=== PATIENT | male | born 1965 | race Caucasian/White ===

== ENCOUNTER 2016-11-23 06:41 | Observation (INO) | payer OTHER ==
[~2016-11-23] VITALS: Ht 175.3 cm; Wt 98.9 kg
--- NOTE | ~2016-11-23 | P ---
[facility] [place] [address] PROCEDURE REPORT Name: KARLY FRANCO Room #: 211-P [facility] Johann Ramirez#: [id number] Admission: 11/23/16 Attend Phys: Cesar Camejo MD Discharge: 11/24/16 Date of : 67 Report #: [id number] THIS REPORT FOR: //name// CC: Cesar Tang PREOPERATIVE DIAGNOSIS: Ischemic cardiomyopathy. POSTOPERATIVE DIAGNOSIS: Ischemic cardiomyopathy. HISTORY: The patient is a 51-year-old with history of ischemic cardiomyopathy here for ICD implantation for primary prevention of sudden cardiac . ANESTHESIA: The patient underwent MAC anesthesia with no anesthesia related complications. DESCRIPTION OF PROCEDURE: The patient underwent informed consent. We discussed the details of the procedure including the risks, which include but not limited to bleeding, infection, vascular damage, cardiac perforation and pneumothorax. He understood these risks and is willing to proceed. As such, the patient was brought to the EP laboratory in a fasting and unsedated state and prepped and draped in a sterile fashion. A venogram was performed showing patency of the left axillary vein and the patient received IV Ancef. Next, I injected 20 mL of lidocaine below the level of left clavicle. Incision was made. A pocket was created over the prepectoral fascia and then access was obtained once the left axillary vein using the extrathoracic approach with the sheath positioned using the modified Seldinger technique. Under fluoroscopic guidance, lead was positioned in the right ventricular apex with adequate pacing and sensing thresholds and then sutured to the prepectoral fascia using Ethibond suture. The device was connected and found to be functioning normally. The device was placed in the pocket. The pocket was irrigated with vancomycin and the pocket was closed in 3 layers using 2-0 for the deep layer, 3-0 for the mid layer and 4-0 for the subcuticular with surgical glue placed at the incision site. The patient awoke, neurologically and hemodynamically intact with no complications and no significant bleeding. The implanted device was a [employer] model # [id number], serial #[id number] with the RV lead also [employer] model #7122Q 58 cm single coil serial #[id number] with a R-wave of 9.1 millivolts, pacing impedance of 650 ohms and pacing threshold 0.75 volts at 0.5 milliseconds. The device is programmed to the VVI 40 mode with a VT zone set at 180 beats per minute with 3 rounds of bursts followed by 3 rounds of ramp followed by max output shocks. The VF zone was set at greater than 222 beats per minute with ATP while charging followed by max output shocks. CONCLUSIONS: [facility] [address] [place] [address] PROCEDURE REPORT Name: KARLY FRANCO Room #: 211-P [facility] Johann Ramirez#: [id number] Admission: 11/23/16 Attend Phys: Cesar Camejo MD Discharge: 11/24/16 Date of : 67 Report #: [id number] 1. Successful ICD implantation. 2. Satisfactory ventricular pacing and sensing thresholds. <ELECTRONICALLY SIGNED> By: Cesar Camejo MD 11/24/16 1227 1006 1451 Cesar Camejo MD /nt
[~2016-11-23 06:41] MED LIST: APAP W/CODEINE1 TA2; ASA5UEC PO; CARVEDILOL3.125 MG; CARVEDILOL6.25 MG PO; COUMADIN 10MG T10 M1 PO; COUMADIN 2 MG TA2 M1; CRESTOR40 MG PO; CRESTOR5 MG; LISINOPRIL10 MG PO; LISINOPRIL2.5 MG; OMEPRAZOLE10 MG; PERCOCET 5-3251 EACH
[2016-11-23] MEDS ORDERED: COZAAR 25 MG TA25 M1 PO (06:57)
[2016-11-23] MEDS ORDERED: ATORVASTATIN CA40 MG PO (06:57)
[2016-11-23] MEDS ORDERED: IBUPROFEN 200200 M1 PO (06:57)
[2016-11-23] MEDS ORDERED: OXYCONTIN10 M1 PO (06:58)
[2016-11-23] MEDS ORDERED: CHANTIX1 EACH PO (06:58)
[2016-11-23] MEDS ORDERED: PLAVIX 75 MG TA75 M1 PO (06:59)
[2016-11-23 07:19] LABS: BASOPHILS 0.8 % (0.0-2.0); HEMATOCRIT 43.9 % (42.0-52.0); HEMOGLOBIN 14.9 gm/dL (14.0-18.0); LYMPHOCYTES 25.9 % (24.0-44.0); MCH 29.8 pg (26.0-34.0); MCHC 33.8 g/dL (28.0-37.0); MONOCYTES 7.5 % (1.0-8.0); PLATELET COUNT 202 thou/uL (150-400); POLYS 61.8 % (36.0-66.0); RBC 4.99 mil/uL (4.50-6.00); RDW 13.5 % (10.5-14.5); WBC 11.3 thou/uL (4.0-11.0)
[2016-11-23 07:21] LABS: MANUAL DIFF NO
[2016-11-23 07:26] VITALS: BP 120/72
[2016-11-23 07:28] LABS: CALCIUM 8.2 mg/dL (8.5-10.1); POTASSIUM 3.7 mmol/L (3.5-5.1)
[2016-11-23 07:31] LABS: APTT 25.9 Seconds (24.5-32.8); PROTIME 10.4 Seconds (9.3-11.4)
[2016-11-23 07:33] LABS: ALBUMIN 3.5 g/dL (3.4-5.0); TOTAL BILIRUBIN 0.4 mg/dL (<0.1-1.0); TOTAL PROTEIN 7.1 g/dL (6.4-8.2)
[2016-11-23 11:48] VITALS: BP 134/90
[2016-11-23 11:49] VITALS: BP 134/90
[2016-11-23 19:37] VITALS: BP 132/87
[2016-11-23 23:44] VITALS: BP 134/93
[2016-11-24 03:53] VITALS: BP 146/91
[2016-11-24 07:00] VITALS: BP 130/82
[2016-11-24 10:30] VITALS: BP 130/82
[2016-11-24 10:46] VITALS: BP 130/82
== END 2016-11-24 11:50 | disposition home or self-care (01) ==
LOC: CATH 06:41 → 2N 11:27
PROVIDERS: Internal Medicine Cardiovascular Disease
DX: I25.5 Ischemic cardiomyopathy (principal); I25.10 Atherosclerotic heart disease of native coronary artery without angina pectoris; I73.9 Peripheral vascular disease, unspecified; Z72.0 Tobacco use; Z95.0 Presence of cardiac pacemaker

== ENCOUNTER → 2017-04-30 | Day surgery (SDC) | payer OTHER ==
[~2017-04-30] VITALS: Ht 180.3 cm; Wt 105.7 kg
[~2017-04-30] MED LIST changes: +ATORVASTATIN CA40 MG PO; +CHANTIX1 EACH PO; +COZAAR 25 MG TA25 M1 PO; +IBUPROFEN 200200 M1 PO; +OXYCONTIN10 M1 PO; +PLAVIX 75 MG TA75 M1 PO
--- NOTE | ~2017-04-30 | O ---
[facility] [place] [address] OPERATIVE REPORT Name: KARLY FRANCO Room #: REG [facility].#: [id number] Admission: 04/30/17 Attend Phys: Christa Huerta, Discharge: Date of : 67 Report #: [id number] THIS REPORT FOR: //name// CC: John Paul Huerta DATE OF SERVICE: 04/30/2017 DIAGNOSIS: Left carpal tunnel syndrome. PROCEDURE PERFORMED: Left endoscopic carpal tunnel release. SURGEON: Christa Huerta MD ANESTHESIA: General mask anesthesia. ESTIMATED BLOOD LOSS: Minimal. TOURNIQUET TIME: 19 minutes. COMPLICATIONS: None. CONDITION: Stable. DISPOSITION: Recovery room. INDICATIONS: The patient is a 52-year-old male with the abovementioned diagnosis. He elected for operative treatment. The risks, benefits, alternatives, and complications were discussed that included but not limited to infection, damage to blood vessels or nerves, and incomplete relief of his symptoms. Informed consent was obtained. The correct extremity was identified and labeled by myself. After verbal confirmation of the patient, as well as visual confirmation, a signed informed consent discussed. DESCRIPTION OF PROCEDURE: The patient was brought back to the operating room and placed on the operating table in supine position. He received preoperative antibiotics. Tourniquet was placed over, padding the patient's left upper extremity. The left upper extremity was sterilely prepped and draped in the usual fashion. A final time-out was taken to verify the correct patient, operative procedure, and operative site, all concurred. The arm was elevated and exsanguinated, and tourniquet was inflated. The entire procedure was done with the aid of 3.5 times loupe magnification. Next, a transverse incision was made measuring approximately 1 cm, a few millimeters proximal to distal wrist crease in line with ulnar border of the palmar longus tendon. Dissection was carried down through the subcutaneous tissue with tenotomy scissors. The antebrachial fascia was identified and incised. It was then incised for few [address] [address] OPERATIVE REPORT Name: KARLY FRANCO Room #: REG [facility]..#: [id number] Admission: 04/30/17 Attend Phys: Christa Huerta, Discharge: Date of : 67 Report #: [id number] millimeters proximal. Next, an oblique incision was made at distal hook of the hamate in line with the ring finger. Dissection was carried down through the subcutaneous tissue with tenotomy scissors. The fat was elevated off the fascia, and then the fascia was carefully incised. Next, a [place]fford elevator was placed through the carpal tunnel from proximal to distal to elevate any synovial tissue off the undersurface of the transverse carpal ligament. Next, this was done with wrist in hyperextension and digital pressure distally to avoid injury to superficial arch. Next, the blunt trocar and cannula was inserted in the same fashion. The blunt trocar was removed, the camera was inserted and any transverse fibers at the undersurface of the transverse carpal ligament were easily identified. A camera was inserted proximally and the transverse fibers were transected distally. The ____ of the camera was then inserted distally and transverse fibers were incised proximally. Next, the camera and cannula were withdrawn while visualizing the cut ends in the transverse carpal ligament. Next, my small finger was placed through the carpal tunnel and there were few remaining fibers in the mid portion, so the blunt trocar and cannula was inserted in the same fashion as mentioned above. Transverse fibers were again seen and were incised with a hook blade. The camera and cannula were withdrawn. Next, my small finger was again placed through the carpal tunnel and I found more proximal remnant of the transverse carpal ligament and so the blunt trocar and cannula was again inserted in the same fashion. The cannula was removed. The camera was inserted and more transverse fibers were found and transected with hook blade. Next, the camera and cannula were withdrawn again. My small finger in the Trafford elevator was placed through the carpal tunnel and no remaining fibers were found. The nerve was evaluated and looked to be in excellent condition to both of the incisions. The release was all the way from the antebrachial fascia and up to the fat in the forearm. The wounds were thoroughly irrigated. The skin was closed with 4-0 nylon suture. The wounds were infiltrated with approximately 6 mL of 0.25% Marcaine. He was placed in a bulky compressive dressing. All fingers were pink with brisk capillary refill at the conclusion of the case. After deflation of the tourniquet, all sponge and needle counts were correct. The patient was transferred to the postoperative recovery room in stable condition. He tolerated the procedure well. By: 1542 1659 Christa Huerta MD /laura
== END ==
LOC: OR 12:22 → EDSTATUS 12:24
DX: G56.02 Carpal tunnel syndrome, left upper limb (principal); I50.9 Heart failure, unspecified; I73.89 Other specified peripheral vascular diseases; I11.0 Hypertensive heart disease with heart failure; I25.10 Atherosclerotic heart disease of native coronary artery without angina pectoris; E78.5 Hyperlipidemia, unspecified; I42.9 Cardiomyopathy, unspecified; K21.9 Gastro-esophageal reflux disease without esophagitis; F17.200 Nicotine dependence, unspecified, uncomplicated; Z95.5 Presence of coronary angioplasty implant and graft; Z91.040 Latex allergy status; Z95.0 Presence of cardiac pacemaker; Z79.82 Long term (current) use of aspirin; Z79.899 Other long term (current) drug therapy; Z98.890 Other specified postprocedural states; Z88.8 Allergy status to other drugs, medicaments and biological substances
CPT/HCPCS: 50010; 50101; 50386; 56526; 56969; 57006; 57091; 62110; 62900; 70005

== ENCOUNTER → 2018-08-19 | Outpatient (CLI) | payer OTHER | LOC: RAD 12:59 → ULTRA 12:59 | DX: N62 Hypertrophy of breast (principal); R92.2 Inconclusive mammogram ==

== ENCOUNTER → 2019-04-16 | Outpatient (CLI) | payer OTHER ==
--- NOTE | 2019-04-16 12:34 | 2DMMODE ---
[facility] [address] [place] [address] 2 D/M-MODE ECHOCARDIOGRAM Name: WILDAJACKIKARLYALINA SINGER Room #: REG [facility]#: [id number] Admission: 04/16/19 Attend Phys: Kg Alanis, Discharge: Date of : 67 Report #: [id number] THIS REPORT FOR: //name// APPROVED REPORT Study performed: 04/16/2019 10:49:31 EXAM: Comprehensive 2D, Doppler, and color-flow Echocardiogram Patient Location: Out-Patient Room #: Echo lab 2 Status: routine BSA: 2.29 HR: 79 bpm BP: 136/84 mmHg Rhythm: NSR Other Information Study Quality: Adequate Indications ICD: Cardiomyopathy 2D Dimensions RVDd: 36.70 mm IVSd: 9.18 (7-11mm) LVOT Diam: 25.08 (18-24mm) LVDd: 68.81 mm PWd: 9.41 (7-11mm) Ascending Ao: 31.93 (22-36mm) LVDs: 59.40 (25-40mm) Aortic Root: 33.90 mm IVC: 18.00 mm Volumes Left Atrial Volume (Systole) Single Plane 4CH: 62.93 mL Single Plane 2CH: 47.23 mL LA ESV Index: 26.00 mL/m2 Aortic Valve AoV Peak Sunil.: 1.22 m/s AO Peak Gr.: 5.93 mmHg LVOT Max P.29 mmHg LVOT Max V: 1.04 m/s SURENDRA Vmax: 4.20 cm2 Mitral Valve E/A Ratio: 0.6 MV Decel. Time: 221.79 ms [facility] [address] [address] 2 D/M-MODE ECHOCARDIOGRAM Name: KARLY FRANCO Room #: REG [facility]#: [id number] Admission: 04/16/19 Attend Phys: Kg Alanis, Discharge: Date of : 67 Report #: [id number] MV E Max Sunil.: 0.56 m/s MV A Sunil.: 0.91 m/s MV PHT: 64.32 ms IVRT: 133.79 ms Pulmonary Valve PV Peak Sunil.: 0.91 m/s PV Peak Gr.: 3.34 mmHg Pulmonary Vein P Vein S: 0.44 m/s P Vein A: 0.25 m/s P Vein D: 0.27 m/s P Vein A Dur.: 87.7 msec P Vein S/D Ratio: 1.63 Left Ventricle Left ventricle is dilated. There is akinesis in the apical wall. There is global hypokinesis of the left ventricle. There is normal left ventricular wall thickness. Left ventricular systolic function is severely decreased. LVEF is 25-30%. Grade I - abnormal relaxation pattern. Right Ventricle The right ventricle is normal size. The right ventricular systolic function is normal. Device lead is present in the right ventricle. Atria The left atrium size is normal. The right atrium size is normal. Device lead is present in the right atrium. Aortic Valve The aortic valve is normal in structure. No aortic regurgitation is present. There is no aortic valvular stenosis. Mitral Valve The mitral valve is normal in structure. Trace mitral regurgitation. No evidence of mitral valve stenosis. Tricuspid Valve The tricuspid valve is normal in structure. There is trace tricuspid regurgitation. Pulmonic Valve The pulmonary valve is normal in structure. There is no pulmonic valvular regurgitation. Great Vessels The aortic root is normal in size. IVC is normal in size and [facility] [address] [place] [address] 2 D/M-MODE ECHOCARDIOGRAM Name: JOANKARLYALINA SINGER Room #: REG [facility]#: [id number] Admission: 04/16/19 Attend Phys: Kg Alanis, Discharge: Date of : 67 Report #: [id number] collapses >50% with inspiration. Pericardium There is no pericardial effusion. <Conclusion> Left ventricle is dilated. LVEF is 25-30%. There is akinesis in the apical wall. There is global hypokinesis of the left ventricle. The right ventricle is normal size. Device lead is present in the right ventricle. The left atrium size is normal. The right atrium size is normal. Device lead is present in the right atrium. The aortic valve is normal in structure. The mitral valve is normal in structure. Trace mitral regurgitation. The pulmonary valve is normal in structure. There is no pericardial effusion. <ELECTRONICALLY SIGNED> By: Alex Head MD 04/16/19 1234 1234 1234 Alex Head MD /INF
== END ==
LOC: ULTRA 09:50
DX: I25.5 Ischemic cardiomyopathy (principal); I77.811 Abdominal aortic ectasia; I73.9 Peripheral vascular disease, unspecified; I25.10 Atherosclerotic heart disease of native coronary artery without angina pectoris; I25.2 Old myocardial infarction; E78.5 Hyperlipidemia, unspecified; I10 Essential (primary) hypertension; Z95.0 Presence of cardiac pacemaker; Z79.899 Other long term (current) drug therapy; Z91.040 Latex allergy status; Z87.891 Personal history of nicotine dependence; Z82.49 Family history of ischemic heart disease and other diseases of the circulatory system

== ENCOUNTER → 2020-05-17 | Outpatient (CLI) | payer OTHER ==
[~2020-05-17] MED LIST changes: +ASA81BEC PO; -ATORVASTATIN CA40 MG PO; +CARVEDILOL3.125 MG PO; +ESSENTIAL DAIL1 EACH PO; +LIPITOR40 MG PO; +METFORMIN HCL500 M3 PO; +OMEPRAZOLE 20 M20 M1 PO; +OXYCODONE HCL10 MG PO; +PLAVIX 75 MG TA75 MG PO
== END ==
LOC: LAB 13:45
PROVIDERS: ATTEND Orthopaedic Surgery Hand Surgery
DX: Z01.812 Encounter for preprocedural laboratory examination (principal); Z20.828 Contact with and (suspected) exposure to other viral communicable diseases

== ENCOUNTER → 2020-05-20 | Outpatient (CLI) | payer OTHER | LOC: LAB 14:52 | PROVIDERS: ATTEND Family Medicine | DX: U07.1 COVID-19 (principal) ==

== ENCOUNTER → 2020-08-05 | Day surgery (SDC) | payer OTHER ==
[~2020-08-05] VITALS: Ht 177.8 cm; Wt 108.9 kg
[2020-08-05 14:36] VITALS: BP 129/84
[2020-08-05 16:16] VITALS: BP 129/84
--- NOTE | 2020-08-10 14:01 | O ---
[facility] [place] [address] OPERATIVE REPORT Name: KARLY FRANCO Room #: REG [facility] M.Carlos.#: [id number] Admission: 08/05/20 Attend Phys: Christa Huerta, Discharge: Date of : 67 Report #: [id number] THIS REPORT FOR: cc: John Paul Tang MD, Rene P. MD Deardorff,Christa Kim MD ~ DATE OF SERVICE: 08/05/2020 PREOPERATIVE DIAGNOSIS: Right carpal tunnel syndrome. POSTOPERATIVE DIAGNOSIS: Right carpal tunnel syndrome. PROCEDURE PERFORMED: Right endoscopic carpal tunnel release. SURGEON: Christa Huerta MD ANESTHESIA: General mask anesthesia. ESTIMATED BLOOD LOSS: Minimal. TOURNIQUET TIME: 30 minutes. COMPLICATIONS: None. CONDITION: Stable. DISPOSITION: Recovery room. INDICATIONS: The patient is a 55-year-old male with the above-mentioned diagnosis. He elects for operative treatment. The risks, benefits, alternatives and complications were discussed including but not limited to infection, damage to vessels or nerves, incomplete relief or worsening of any symptoms. We discussed he still may have a possible early trigger finger. We discussed injection versus surgical treatment versus observation. He elects for observation. We discussed that he may require surgery in the future. There is no locking or clicking, just pain along the flexor tendon sheath. Informed consent was obtained. The correct extremity was identified and labeled by myself after verbal confirmation of the patient as well as visual confirmation and signed informed consent. DESCRIPTION OF PROCEDURE: The patient was brought back to the OR and placed in a supine position. He received preoperative antibiotics. Tourniquet was placed over padding. The patient's right upper extremity was sterilely prepped and draped in the usual fashion. Final timeout was taken to verify correct patient, operative procedure, operative site, all concurred. The arm was elevated, [facility] [address] [place] [address] OPERATIVE REPORT Name: KARLY FRANCONE Room #: REG [facility].#: [id number] Admission: 08/05/20 Attend Phys: Christa Huerta, Discharge: Date of : 67 Report #: [id number] exsanguinated and tourniquet inflated. The entire procedure was done with the aid of 3.5 loupe magnification. Next, a transverse incision was made a few millimeters proximal to the distal wrist crease in line with ulnar border of the palmaris longus tendon. Dissection was carried down through subcutaneous tissue with tenotomy scissors. Antebrachial fascia was identified and incised. It was then incised for a few millimeters proximal. Next, an oblique incision was made to distal hook of hamate in line with the ring finger. The fat was elevated off the fascia. The fascia was carefully incised. A [place] elevator was placed through the carpal tunnel and any synovial tissue was elevated off the undersurface of the transverse carpal ligament. Next, a blunt trocar and cannula was inserted with the wrist in maximal extension and digital pressure distally. The blunt trocar was removed. The camera was inserted and the nice transverse fibers of the undersurface of the transverse carpal ligament was identified. The hook plate was brought in distally and the transverse carpal ligament transected distally. Next, a camera was inserted distally and the transverse carpal ligament was transected proximally. Next, a camera and cannula were withdrawn and visualized the cut ends of the transverse carpal ligament. Next, each wound was explored. The release was all the way from the antebrachial fascia in the forearm, all the way through the fat in the palm. [place] elevator was placed through the carpal tunnel and no remnants of the transverse carpal ligament remained. The wounds were thoroughly irrigated. Skin was closed with 4-0 nylon suture. Wound was dressed with Adaptic and sterile gauze. He was placed in a bulky dressing. All fingers were pink with brisk capillary refill at the conclusion of case and after deflation of tourniquet. All sponge and needle counts were correct. The patient was transferred to postoperative recovery room in stable condition. <ELECTRONICALLY SIGNED> By: hCrista Huerta MD 08/10/20 1401 1624 1741 Christa Huerta MD /nt
== END | disposition home or self-care (01) ==
LOC: OR 08:22
PROVIDERS: ATTEND Orthopaedic Surgery Hand Surgery
DX: G56.01 Carpal tunnel syndrome, right upper limb (principal); I11.0 Hypertensive heart disease with heart failure; E11.9 Type 2 diabetes mellitus without complications; I50.9 Heart failure, unspecified; E78.00 Pure hypercholesterolemia, unspecified; I25.2 Old myocardial infarction; I73.9 Peripheral vascular disease, unspecified; E78.5 Hyperlipidemia, unspecified; K21.9 Gastro-esophageal reflux disease without esophagitis; Z98.890 Other specified postprocedural states; Z79.899 Other long term (current) drug therapy; Z91.040 Latex allergy status; Z88.8 Allergy status to other drugs, medicaments and biological substances
CPT/HCPCS: 50010; 50101; 50386; 56526; 56969; 57006; 57091; 57178; 62110; 62900; 70005

== ENCOUNTER 2020-10-20 08:04 | Emergency (ER) | payer OTHER ==
[~2020-10-20] VITALS: Ht 180.3 cm; Wt 115.7 kg
[2020-10-20] MEDS ORDERED: CARVEDILOL12.5 MG PO (08:44)
[2020-10-20] MEDS ORDERED: LIPITOR40 MG PO (08:44)
[2020-10-20] MEDS ORDERED: COZAAR 25 MG TA25 M2 PO (08:44)
[2020-10-20] MEDS ORDERED: PLAVIX 75 MG TA75 MG PO (08:44)
[2020-10-20 08:45] LABS: ABSOLUTE NEUTROPHILS 7.4 thou/uL (1.4-8.2); BASOPHILS 0.6 % (0.0-2.0); EOSINOPHILS 4.6 % (0.0-3.0); HEMATOCRIT 41.6 % (42.0-52.0); HEMOGLOBIN 14.2 gm/dL (14.0-18.0); LYMPHOCYTES 15.4 % (24.0-44.0); MCH 30.4 pg (26.0-34.0); MCHC 34.1 g/dL (28.0-37.0); MCV 89.2 fL (80.0-100.0); MONOCYTES 7.8 % (1.0-8.0); PLATELET COUNT 216 thou/uL (150-400); POLYS 71.6 % (36.0-66.0); RBC 4.66 mil/uL (4.50-6.00); RDW 12.8 % (10.5-14.5); WBC 10.3 thou/uL (4.0-11.0)
[2020-10-20] MEDS ORDERED: METFORMIN HCL500 MG PO (08:45)
[2020-10-20] MEDS ORDERED: SUPER THERAVIT1 EACH PO (08:45)
[2020-10-20] MEDS ORDERED: OMEPRAZOLE40 MG PO (08:45)
[2020-10-20] MEDS ORDERED: ST. JOSEPH ASPI81 MG PO (08:45)
[2020-10-20] MEDS ORDERED: PERCOCET 10-321 EAC1 PO (08:46)
[2020-10-20 09:06] LABS: ANION GAP 11 mmol/L (7-16); BUN 12 mg/dL (7-18); CALCIUM 9.1 mg/dL (8.5-10.1); CHLORIDE 100 mmol/L (98-107); CO2 28 mmol/L (21-32); GLUCOSE 171 mg/dL (74-106); POTASSIUM 4.1 mmol/L (3.5-5.1); SODIUM 139 mmol/L (136-145)
[2020-10-20 09:15] LABS: ALBUMIN 3.9 g/dL (3.4-5.0); SGOT 26 U/L (15-37); SGPT 46 U/L (16-63); TOTAL BILIRUBIN 0.7 mg/dL (0.2-1.0); TOTAL PROTEIN 7.6 g/dL (6.4-8.2); TROPONIN-I <0.06 ng/mL (<0.06)
[2020-10-20 10:39] VITALS: BP 159/98
--- NOTE | 2020-10-20 14:29 | EKG ---
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1965 Requested By: Ricky Chaves Order Number: [id number] MD: Kg Alanis Measurements Intervals [place] Rate: 83 P: 12 IA: 177 QRS: 14 QRSD: 88 T: 103 QT: 338 QTc: 398 Interpretive Statements Sinus rhythm Ventricular premature complex Anterior infarct, old Compared to ECG 08/28/2010 06:42:11 Ventricular premature complex(es) now present Electronically Signed On 10-20-2020 14:29:23 CDT by Kg Alanis [email or web address] <ELECTRONICALLY SIGNED> By: Kg Alanis MD, [facility] 10/20/20 1429 0822 1 Kg Alanis MD, FACC /EPI
== END 2020-10-20 10:39 | disposition home or self-care (01) ==
LOC: ER 08:04
PROVIDERS: Emergency Medicine
DX: R06.00 Dyspnea, unspecified (principal); K21.9 Gastro-esophageal reflux disease without esophagitis; I11.0 Hypertensive heart disease with heart failure; I50.9 Heart failure, unspecified; E11.9 Type 2 diabetes mellitus without complications; E78.5 Hyperlipidemia, unspecified; I25.2 Old myocardial infarction; J45.909 Unspecified asthma, uncomplicated; Z90.89 Acquired absence of other organs; Z79.82 Long term (current) use of aspirin; Z79.01 Long term (current) use of anticoagulants; Z79.899 Other long term (current) drug therapy; Z88.8 Allergy status to other drugs, medicaments and biological substances; Z91.040 Latex allergy status

== ENCOUNTER → 2020-11-15 | Outpatient (CLI) | payer OTHER ==
[~2020-11-15] MED LIST changes: +CARVEDILOL12.5 MG PO; +COZAAR 25 MG TA25 M2 PO; +METFORMIN HCL500 MG PO; +OMEPRAZOLE40 MG PO; +PERCOCET 10-321 EAC1 PO; +ST. JOSEPH ASPI81 MG PO; +SUPER THERAVIT1 EACH PO
== END ==
LOC: LAB 07:58
PROVIDERS: ATTEND Orthopaedic Surgery Hand Surgery
DX: Z01.812 Encounter for preprocedural laboratory examination (principal); Z20.822 Contact with and (suspected) exposure to COVID-19

== ENCOUNTER 2020-11-18 12:17 | Day surgery (SDC) | payer OTHER ==
[~2020-11-18] VITALS: Ht 177.8 cm; Wt 117.0 kg
--- NOTE | ~2020-11-18 | O ---
[facility] [address] [facility] [place] [address] OPERATIVE REPORT Name: KARLY FRANCO Room #: DEP [facility] James#: [id number] Admission: 11/18/20 Attend Phys: Christa Huerta, Discharge: 11/18/20 Date of : 67 Report #: [id number] THIS REPORT FOR: cc: John Paul Tang MD, Rene P. MD Deardorff,Christa Kim MD ~ DOC #: [id number] Christa Huerta MD DATE OF SERVICE: 11/18/2020 PREOPERATIVE DIAGNOSES: 1. Right long finger trigger finger. 2. Right ring finger trigger finger. POSTOPERATIVE DIAGNOSES: 1. Right long finger trigger finger. 2. Right ring finger trigger finger. PROCEDURES PERFORMED: 1. Right long finger A1 joseph release. 2. Right ring finger A1 joseph release. SURGEON: Christa Huerta M.D. ANESTHESIA: General mask anesthesia. ESTIMATED BLOOD LOSS: Minimal. TOURNIQUET TIME: 9 minutes. COMPLICATIONS: None. CONDITION: Stable. DISPOSITION: To the recovery room. INDICATIONS: The patient is a 55-year-old male with the above-mentioned diagnosis. He elects for operative treatment. The risks, benefits, alternatives and complications were discussed including but not limited to infection, damage to vessels or nerves, incomplete relief or worsening of any symptoms. Informed consent was obtained. The correct extremity was identified and labeled by myself after verbal confirmation of the patient as well as visual confirmation and signed informed consent. DESCRIPTION OF PROCEDURE: The patient was brought back to the operating room and placed in the supine position. He received preoperative antibiotics. [address] [address] OPERATIVE REPORT Name: KARLY FRANCO Room #: DEP [facility] M..#: [id number] Admission: 11/18/20 Attend Phys: Christa Huerta, Discharge: 11/18/20 Date of : 67 Report #: [id number] Tourniquet was placed over the padding on the patient's right upper extremity, was sterilely prepped and draped in the usual fashion. Final timeout was taken to verify correct patient, operative procedure and operative site, all concurred. The arm was elevated, exsanguinated and tourniquet inflated. The entire procedure was done with aid of 3.5 times loupe magnification. Next, an oblique incision was made over each of the right long and right ring finger A1 pulleys. Dissection was carried down through subcutaneous tissue with tenotomies, and in each the A1 joseph was easily identified and incised. Careful attention was paid to avoid damage to surrounding structures. In each of the right long and ring finger incisions, the tendons were taken through a passive range of motion. The tendons glided smoothly. The wounds were then thoroughly irrigated. The skin was closed with 4-0 nylon suture. The wounds were dressed with Adaptic and sterile gauze. He was placed in a bulky dressing. All fingers were pink with brisk capillary refill at the conclusion of the case after deflation of tourniquet. All sponge and needle counts were correct. The patient transferred to postoperative recovery room in stable condition. MD MEGA Guevara/REINALDO/VICENTE By: 1420 99 Christa Huerta MD /nt
[2020-11-18 13:49] VITALS: BP 127/75
[2020-11-18 15:20] VITALS: BP 127/75
== END 2020-11-18 16:10 | disposition home or self-care (01) ==
LOC: OR 12:17 → TBA 12:23 → OR 15:01
PROVIDERS: ATTEND Orthopaedic Surgery Hand Surgery
DX: M65.331 Trigger finger, right middle finger (principal); M65.341 Trigger finger, right ring finger; I11.0 Hypertensive heart disease with heart failure; I50.9 Heart failure, unspecified; I25.2 Old myocardial infarction; E78.00 Pure hypercholesterolemia, unspecified; I73.9 Peripheral vascular disease, unspecified; Z98.890 Other specified postprocedural states; Z79.899 Other long term (current) drug therapy; Z91.040 Latex allergy status; Z87.891 Personal history of nicotine dependence
CPT/HCPCS: 50010; 50101; 50386; 56526; 57006; 57091; 57178; 62110; 62900; 70005

== ENCOUNTER → 2021-02-02 | Outpatient (CLI) | payer OTHER | LOC: SJCVCIMAG 08:21 | PROVIDERS: ATTEND Internal Medicine | DX: I70.203 Unspecified atherosclerosis of native arteries of extremities, bilateral legs (principal); M79.661 Pain in right lower leg ==

== ENCOUNTER → 2021-02-03 | Outpatient (CLI) | payer OTHER | LOC: SJCVCIMAG 06:26 | PROVIDERS: ATTEND Internal Medicine | DX: I11.9 Hypertensive heart disease without heart failure (principal); I48.91 Unspecified atrial fibrillation; R00.0 Tachycardia, unspecified; I49.3 Ventricular premature depolarization; I25.2 Old myocardial infarction; I25.10 Atherosclerotic heart disease of native coronary artery without angina pectoris; I25.5 Ischemic cardiomyopathy; E78.5 Hyperlipidemia, unspecified; Z95.5 Presence of coronary angioplasty implant and graft; Z79.899 Other long term (current) drug therapy; Z87.891 Personal history of nicotine dependence ==

== ENCOUNTER 2021-02-14 06:05 | Day surgery (SDC) | payer OTHER ==
[~2021-02-14] VITALS: Ht 177.8 cm; Wt 113.4 kg
--- NOTE | ~2021-02-14 | O ---
[facility] [place] [address] OPERATIVE REPORT Name: KARLY FRANCO Room #: 150-1 [facility] M..#: [id number] Admission: 02/14/21 Attend Phys: Dane Qiu MD Discharge: Date of : 67 Report #: [id number] THIS REPORT FOR: cc: John Paul Tang MD, Rene P. MD Shapiro, Peter E. MD ~ DATE OF SERVICE: 02/14/2021 PREOPERATIVE DIAGNOSES: Deviated nasal septum; nasal airway obstruction; chronic maxillary, ethmoid and frontal sinusitis with epiphora. POSTOPERATIVE DIAGNOSES: Deviated nasal septum; nasal airway obstruction; chronic maxillary, ethmoid and frontal sinusitis with epiphora. OPERATIVE PROCEDURES: Nasal septoplasty, endoscopic right maxillary antrostomy, right complete ethmoidectomy and right frontal duct exploration. ANESTHESIA: General by laryngeal mask. DESCRIPTION OF PROCEDURE: The patient was taken to the operating room and placed in the supine position. General anesthesia was induced by laryngeal mask. Once adequate general anesthesia was obtained, local nasal anesthesia was induced by submucoperichondrial injection of 1% lidocaine with 1:100,000 epinephrine and topical application of cocaine solution. The patient was then draped in a sterile manner. The patient had a nasal septal deviation to the right side. A hemitransfixion incision was placed on the right side of the nose and the mucoperichondrial and mucoperiosteum was elevated off of the septum. The cartilage was incised in front of the bony cartilaginous junction and a portion of cartilage and bone was removed from the mid portion of the septum. Along the floor, there was hypertrophic cartilage and a fracture of the maxillary crest. The cartilage was removed as a long strip. The maxillary crest was infractured and rongeured. After these maneuvers, the septum sat more in the midline. The hemitransfixion incision was then closed with 4-0 chromic suture and a 4-0 plain mattress suture was placed as well. The nasal endoscope was used to visualize the right nasal cavity. The middle turbinate was deviated medially. The uncinate process was removed using the microdebrider and the natural opening of the maxillary sinus was located. It was enlarged in a posterior-inferior manner by removing the soft fontanelle and ethmoidectomy was performed by removing the ethmoidal bulla and then following the ethmoid air cells back to and through the basal lamella and then forward along the lamina papyracea and fovea ethmoidalis to complete the ethmoidectomy anteriorly. I removed the ethmoid air cells anteriorly at the root of the uncinate process and followed it up into the frontal duct. Surgiflo was placed into the ethmoid cavity and middle meatus for hemostasis. The patient tolerated the procedure [address] [address] OPERATIVE REPORT Name: KARLY FRANCO Room #: 150-1 [facility] M.R.#: [id number] Admission: 02/14/21 Attend Phys: Dane Qiu MD Discharge: Date of : 67 Report #: [id number] well. Blood loss approximately 50 mL. The patient was then awoken and taken to the recovery room in stable condition for postoperative monitoring. By: [id number] Dane Qiu MD /nt
[~2021-02-14 06:05] MED LIST changes: +ADVIL200 M1 PO; +MULTI VITAMIN1 EACH PO
[2021-02-14 07:04] VITALS: BP 147/85
--- NOTE | 2021-02-14 07:37 | H ---
[facility] [place] [address] HISTORY AND PHYSICAL Name: KARLY FRANCO Room #: 150-1 [facility]..#: [id number] Admission: 02/14/21 Attend Phys: Dane Qiu MD Discharge: Date of : 67 Report #: [id number] THIS REPORT FOR: cc: John Paul Tang MD, Rene P. MD Shapiro, Peter E. MD ~ DATE OF SERVICE: 02/14/2021 His procedure is scheduled for 02/14/2021. HISTORY OF PRESENT ILLNESS: The patient has problems with tearing from his right eye. The drainage is severe and causes overlying inflammation of the skin lateral to the right orbit. He went to see Dr. Howard for lacrimal problems, but on CT scan was found to have a severely deviated nasal septum to the right side and mucous membrane thickening in several of his sinuses. The CAT scan shows a large right maxillary sinus cyst with mucous membrane thickening in bilateral ethmoid sinuses and in the floor of the right frontal sinus. PAST MEDICAL HISTORY: Significant for diabetes, heart problems and blood clots. MEDICATIONS: Include losartan, atorvastatin, metformin, Prilosec, aspirin, Coumadin. ALLERGIES: He has no known drug allergies. PHYSICAL EXAMINATION: He has a very severely deviated nasal septum to the right side with the septum touching the lateral wall of the nose. The oropharynx and oral cavity were clear. IMPRESSION: Deviated nasal septum with chronic maxillary, ethmoid and frontal sinusitis causing severe lacrimal issues. PLAN: Nasal septoplasty, endoscopic right maxillary antrostomy, right complete ethmoidectomy and right frontal duct exploration. He is going to be off of his Coumadin 5 days prior to the procedure. <ELECTRONICALLY SIGNED> By: Dane Qiu MD 02/14/21 0737 1459 1509 Dane Qiu MD /nt
[2021-02-14] MEDS ORDERED: CEPHALEXIN500 MG PO (09:09)
[2021-02-14] MEDS ORDERED: NORCO7.5 PO (09:09)
[2021-02-14 09:42] VITALS: BP 147/85
== END 2021-02-14 11:00 | disposition home or self-care (01) ==
LOC: OR 06:05 → TBA 06:12 → OR 10:23
PROVIDERS: ATTEND Otolaryngology
DX: J34.2 Deviated nasal septum (principal); J34.89 Other specified disorders of nose and nasal sinuses; J32.0 Chronic maxillary sinusitis; J32.1 Chronic frontal sinusitis; J32.2 Chronic ethmoidal sinusitis; H04.201 Unspecified epiphora, right side; E11.9 Type 2 diabetes mellitus without complications; Z98.890 Other specified postprocedural states; Z79.899 Other long term (current) drug therapy; Z79.01 Long term (current) use of anticoagulants; Z88.8 Allergy status to other drugs, medicaments and biological substances; Z91.040 Latex allergy status
CPT/HCPCS: 50010; 50101; 50386; 50398; 51751; 56524; 56528; 56635; 62110; 62900; 64037; 70005

== ENCOUNTER → 2021-04-26 | Outpatient (CLI) | payer OTHER ==
[~2021-04-26] VITALS: Ht 180.3 cm; Wt 115.7 kg
[~2021-04-26] MED LIST changes: +CEPHALEXIN500 MG PO; +JANTOVEN7.5 MG PO; +NORCO7.5 PO; -OMEPRAZOLE40 MG PO; +PREDNISONE 10 M10 MG PO
--- NOTE | ~2021-04-26 | HPC ---
[facility] [address] [address] PAIN MANAGEMENT CONSULTATION Name: KARLY FRANCO Room #: REG JACK Sainz[facility]Carlos[facility]#: [id number] Admission: 04/26/21 Attend Phys: Ricky Kraus DO Discharge: Date of : 67 Report #: [id number] THIS REPORT FOR: cc: John Paul Tang MD, Rene P. MD Johnson, James E. DO ~ DATE OF SERVICE: 04/26/2021 CHIEF COMPLAINT: Bilateral shoulder pain. HISTORY OF PRESENT ILLNESS: As you know, the patient is a very pleasant 56-year-old male, reporting a 2-month history of progressively worsening bilateral shoulder pain. The patient states that his pain has progressively worsened over the past 2 months. There has been no specific injury or trauma, but he has been diagnosed with rotator cuff injuries in the past. He states he was doing well until increased activities of late and this led to increasing bilateral shoulder pain. He states that this morning, he was unable to get up and move his arms beyond about a 20-degree to 30-degree abduction without pain intensification. He has difficulty with raising his arms above his head. He has to participate in multiple maneuvers to be able to move through the 40 to about 125-130 degree abduction before he can then obtain control of the pain and then increase his extension of the arms above his head. He is taking oxycodone 10 mg dose, which he is finding ineffective. He has been referred to our clinic to discuss treatment for bilateral rotator cuff injuries that have progressively worsen without injury or trauma. The patient reports today pain is continuous and constant with intermittent brief and momentary exacerbations of pain with movement. He describes the pain, more of a aching and pulling sensation. He places current pain score at 9/10, daily average anywhere from 7-9/10, worst pain has been as 10/10. The patient states pain is exacerbated with sleeping and trying to raise his shoulders above his head, nothing appears to improve pain over the past 2 months. He has been referred to our service to discuss treatment options. PAST MEDICAL HISTORY: 1. Diabetes mellitus type 2. 2. Coronary artery disease, requiring ICD placement. 3. Chronic sinusitis. 4. Osteoarthritis. 5. Rotator cuff injuries bilaterally. PAST SURGICAL HISTORY: 1. Carpal tunnel release. 2. ICD placement. 3. Trigger finger release. 4. Right elbow surgery. 5. Rhinoplasty. [address] [address] PAIN MANAGEMENT CONSULTATION Name: KARLY FRANCO Room #: REG CLI [facility]#: [id number] Admission: 04/26/21 Attend Phys: Ricky Kraus DO Discharge: Date of : 67 Report #: [id number] SOCIAL HISTORY: The patient is a reformed smoker, smoked 1-1/2 to 2 packs of tobacco per day for nearly 30 years. He denies IV or illicit drug use. Denies any chronic alcohol use. 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 He is unaccompanied at today's visit. REVIEW OF SYSTEMS: Positive only for weight gain, had migraine headaches, coronary artery disease, bilateral shoulder pain. All other review of systems negative per 12-point review of systems other than those listed in history of present illness. Pain impact score 40 of 70, moderate interference of daily activities secondary to pain. ALLERGIES: LATEX. CURRENT MEDICATIONS: Metformin 500 mg twice a day, warfarin 7.5 mg once a day, prednisone 10 mg once a day, oxycodone 10 mg p.r.n., carvedilol 3.25 mg b.i.d., multivitamin 1 tab per day, aspirin 81 mg per day, omeprazole 20 mg per day, atorvastatin 40 mg once a day, losartan 25 mg per day. IMAGING: No imaging available. PHYSICAL EXAMINATION: VITAL SIGNS: Blood pressure 121/71, pulse of 97, respiratory rate 20, unlabored. The patient is 95% on room air. Height 5 feet 11 inches tall, weight 255 pounds, BMI calculated 35.6. GENERAL: Well-developed, well-nourished, well-hydrated 56-year-old male appearing stated age, no acute distress. Awake, alert, and oriented x3. Pain is rated today 9/10. HEENT: Normocephalic, atraumatic. Pupils equal, round and responsive to light. Extraocular muscles are intact. Speech fluent. The patient is wearing a mask in compliance with COVID-19 regulations. He is an excellent historian. LUNGS: Appear clear. No wheeze or rhonchi, no rales. CARDIOVASCULAR: Regular. No appreciable gallop, no rub. There is a notable ICD implant. EXTREMITIES: Show no clubbing, no cyanosis and no edema. MUSCULOSKELETAL: The patient has tenderness to palpation over the bilateral shoulders, left greater than right. Deep palpation causes intensification of pain over the biceps tendons bilaterally. The patient has difficulty with provocating testing of the shoulders consistent with rotator cuff injury. He is unable to perform a lift off procedure with either shoulder. He is unable to rotate his shoulder and place his dorsum of his hand on his lower back. Apprehension test is positive. The patient has pain elicited with abduction of the shoulder beyond 30-[address] to about 120 degrees before [facility] [address] [place] [address] PAIN MANAGEMENT CONSULTATION Name: KARLY FRANCONE [id number] Admission: 04/26/21 Attend Phys: Ricky Kraus DO Discharge: Date of : 67 Report #: [id number] symptoms began to improve, consistent with rotator cuff injury. This is noted bilaterally. The muscle bulk and tone in the upper extremities are equal and symmetrical 5/5. Deep tendon reflexes are symmetrical, 2+/4 at biceps, brachialis, and triceps. ASSESSMENT: 1. Bilateral shoulder pain. 2. Bilateral shoulder rotator cuff injury. 3. Bilateral shoulder osteoarthritis. 4. Chronic intractable pain. PLAN: 1. Based on today's physical exam and history the patient has provided, the description the patient uses in regards to pain as well as location of symptoms and the lack of capability of utilizing the shoulder secondary to pain, likely source of the patient's pain is the intrinsic shoulder pathology of rotator cuff injuries and underlying osteoarthritis. The patient and I discussed at length today the treatment options we have available to address this issue. The following was discussed with the patient today. We discussed physical therapy, stretching exercises, and mobility techniques as a treatment course. We discussed medication management utilizing a nonsteroidal anti-inflammatory in conjunction with his current opioid medication. We discussed intraarticular shoulder injections under fluoroscopic guidance and ultimately surgical procedures to address bilateral rotator cuff injuries. After reviewing risks and benefits of all proposed treatment options, the patient chose to move forward with intraarticular shoulder injections. 2. The patient will need to have clearance to come off his Coumadin in preparation for bilateral shoulder injections. He will need to be off the Coumadin at least 3 days to safely undergo the procedure. The patient states he has been off the Coumadin in the past, that should not be a problem. We will schedule the patient to undergo bilateral intraarticular shoulder injections this Sunday. This will provide the patient with analgesic benefit and by reducing the Coumadin, also reduce his chance of hemarthrosis. The patient is agreeable with the plan. He will discontinue his Coumadin starting today. 3. We made no changes in the patient's medication management at this time. We did discuss the possibility of adding a nonsteroidal anti-inflammatory such as Celebrex, which can be taken in tandem with Coumadin. The patient is not wishing to start a new medication at this time. He will consider that option, if symptoms continue, even after the intra-articular shoulder injections proposed. 4. We wish to thank the referring physician for the opportunity to see this patient in consultation. We will keep you apprised of his response to treatment [address] [address] PAIN MANAGEMENT CONSULTATION Name: KARLY FRANCO Room #: REG JACK Ramirez#: [id number] Admission: 04/26/21 Attend Phys: Ricky Kraus DO Discharge: Date of : 67 Report #: [id number] as we address bilateral shoulder pain. Again, we wish to thank you for the opportunity to see the patient in consultation. By: [id number] Ricyk Kraus DO /laura
[2021-04-26 13:33] VITALS: BP 121/71
--- NOTE | 2021-04-26 13:56 | NUR ---
Pain Clinic Assessment: 1. History of Osteoarthritis: Not Applicable History of Rheumatoid Arthritis: Not Applicable 2. Height: 5 ft. 11 in. 180.3 cm. Weight: 255.0 lb. oz. 115.668 kg. Patient's BMI: 35.6 3. Vital Signs: BP: 121/71 Pulse: 97 Resp: 20 Temp: 02 Sat: 95 ECG Mon: 4. Pain Intensity: 9 5. Fall Risk: Dizziness: N Needs help standing or walking: N Fallen in the last 3 months: N Fall risk comments: 6. Patient on Blood Thinner: Warfarin (Coumadin) 7. History of Hypertension: Y 8. Opioid Therapy greater than 6 weeks: Y Opiate Contract Signed: 9. Risk Assessment Tool Provided: LOW 10. Functional Assessment Tool: 11. Recreational Drug Use: Never Drug Type: Tobacco Use: Former Smoker Tobacco Type: Cigarettes Amount or Packs/day: 1 1/2 How Many Years: 30 Alcohol Use: No Frequency: Quant:
== END ==
LOC: PAIN 12:45
PROVIDERS: ATTEND Anesthesiology Pain Medicine
DX: M25.511 Pain in right shoulder (principal); M25.512 Pain in left shoulder; G89.4 Chronic pain syndrome; E11.9 Type 2 diabetes mellitus without complications; Z79.899 Other long term (current) drug therapy; Z79.01 Long term (current) use of anticoagulants; Z79.891 Long term (current) use of opiate analgesic

== ENCOUNTER → 2021-04-28 | Outpatient (CLI) | payer OTHER ==
[~2021-04-28] VITALS: Ht 180.3 cm; Wt 115.7 kg
[2021-04-28 08:13] VITALS: BP 138/88
--- NOTE | 2021-04-28 08:24 | NUR ---
Pain Clinic Assessment: 1. History of Osteoarthritis: Not Applicable History of Rheumatoid Arthritis: Not Applicable 2. Height: 5 ft. 11 in. 180.3 cm. Weight: 255.0 lb. oz. 115.668 kg. Patient's BMI: 35.6 3. Vital Signs: BP: 138/88 Pulse: 82 Resp: 16 Temp: 02 Sat: 98 ECG Mon: 4. Pain Intensity: 7 5. Fall Risk: Dizziness: N Needs help standing or walking: N Fallen in the last 3 months: N Fall risk comments: 6. Patient on Blood Thinner: Warfarin (Coumadin) 7. History of Hypertension: Y 8. Opioid Therapy greater than 6 weeks: Y Opiate Contract Signed: 9. Risk Assessment Tool Provided: LOW-0 10. Functional Assessment Tool: 40/ 11. Recreational Drug Use: Never Drug Type: Tobacco Use: Former Smoker Tobacco Type: Amount or Packs/day: How Many Years: Alcohol Use: No Frequency: Quant:
--- NOTE | 2021-05-03 11:49 | HPC ---
[facility] [place] [address] [address] [place] [address] PAIN MANAGEMENT CONSULTATION Name: KARLY FRANCO Room #: REG JACK SarahKi#: [id number] Admission: 04/28/21 Attend Phys: Ricky Kraus DO Discharge: Date of : 67 Report #: [id number] THIS REPORT FOR: cc: John Paul Tang MD,Ricky Kirkland MD, DO ~ cc: John Paul Tang MD DATE OF SERVICE: 04/28/2021 REFERRING PHYSICIAN: Dr. John Paul Tang. CHIEF COMPLAINT: Bilateral shoulder pain. HISTORY OF PRESENT ILLNESS: As you know, the patient is a very pleasant 56-year-old male reporting 2-month history of progressively worsening bilateral shoulder pain. The patient indicates no specific injury or trauma. We saw the patient in consultation per the request of his primary care physician on 04/26/2021. He was diagnosed with bilateral shoulder osteoarthritis and rotator cuff injuries bilaterally. Due to anticoagulant therapy, the patient could not undergo a series of intra-articular shoulder injections until he could come off the Coumadin. He did not take his Coumadin today, but has not been off the medication long enough to safely undergo intra-articular bilateral shoulder injections. We made today's appointment on 04/28/2021 for the patient to undergo the procedure. He is placing current pain score 7/10. He has had no changes in medication management since his last visit except for the discontinuation of his Coumadin. He returns for bilateral intraarticular shoulder injections to address longstanding bilateral shoulder pain. ALLERGIES: LATEX. CURRENT MEDICATIONS: Metformin, prednisone, oxycodone, carvedilol, multivitamins, omeprazole, aspirin, atorvastatin, losartan. SOCIAL HISTORY: The patient is a reformed smoker, smoked 1-1/2 to 2 packs of tobacco per day for nearly 30 years. Denies IV or illicit drug use. Denies any chronic alcohol use. 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 IMAGING: No new imaging available. PHYSICAL EXAMINATION: VITAL SIGNS: Blood pressure 138/88, pulse is 82, respiratory rate 16 and unlabored. The patient 98% on room air. Height 5 feet 11 inches tall, weight 255 pounds, BMI calculated 35.6. GENERAL: Well-developed, well-nourished, well-hydrated 56-year-old male appearing stated age, pain is rated today 7/10. [address] [address] PAIN MANAGEMENT CONSULTATION Name: KARLY FRANCO Room #: REG [facility]#: [id number] Admission: 04/28/21 Attend Phys: Ricky Kraus DO Discharge: Date of : 67 Report #: [id number] HEENT: Normocephalic, atraumatic. Pupils equal, round and responsive. EXTREMITIES: Show no clubbing, no cyanosis. No appreciable edema. MUSCULOSKELETAL: Tenderness to palpation is once again noted over the bilateral shoulders, left greater than right. Deep palpation causes intensification of pain over the biceps tendons equally. He is unable to rotate his shoulder and place the dorsum of his hand on his lower back bilaterally. Apprehension test is positive consistent with rotator cuff injury. ASSESSMENT: 1. Bilateral shoulder pain. 2. Bilateral shoulder rotator cuff injuries. 3. Bilateral shoulder osteoarthritis. 4. Chronic intractable pain. PLAN: 1. The patient returns today in followup visit having discontinued his Coumadin in preparation for bilateral intraarticular shoulder injections. The patient has been advised of the risks and the benefits of bilateral shoulder injections. These risks include but are not necessarily limited to bleeding, bruising, infection, worsening pain, no relief of pain, also risk of temporary or permanent muscle weakness, temporary or permanent nerve damage, possible joint destruction and . The patient states he understood and wished to proceed. 2. No medication changes made at today's visit. The patient will continue current medical therapy as prior prescribed. 3. We plan to see the patient back in followup visit on an as-needed basis for the next in the series of bilateral intra-articular shoulder injections. I am hopeful the patient will see good and prolonged benefit with today's procedure. PROCEDURE NOTE: DESCRIPTION OF PROCEDURE: Bilateral intraarticular shoulder injections under fluoroscopic guidance. After obtaining written consent, the patient was taken back to fluoroscopy suite, placed in a supine position. The image intensifier (C-arm) was then brought into position over the left shoulder and AP imaging was obtained. The area was marked and then prepped with chlorhexidine. A 27-guage 1-1/4-inch needle was then used to anesthetize skin and subcutaneous tissue with 1 mL of 1% lidocaine. A 20-gauge 2-inch needle was then advanced under fluoroscopic guidance towards the proximal head of the humerus on the left. Needle was advanced until reaching the proximal head of the humerus, then retracted 1 mm. After negative aspiration for heme, 0.5 mL of Omnipaque injected, demonstrating excellent left shoulder arthrogram. After negative aspiration for heme, 3 mL of solution containing 1 mL 40 mg per mL, 40 mg total triamcinolone along with 2 mL of bupivacaine 0.5% injected slowly. Needle retracted [facility], flushed with [address] [address] PAIN MANAGEMENT CONSULTATION Name: KARLY FRANCO Room #: REG [facility]#: [id number] Admission: 04/28/21 Attend Phys: Ricky Kraus DO Discharge: Date of : 67 Report #: [id number] of 1% lidocaine, then removed. Sterile bandage was placed over injection site. There were no new motor deficits present in the left upper extremity following procedure. Our attention was then directed to the right side. The image intensifier (C-arm) was then brought into position over the right shoulder and AP imaging was obtained. The area of the injection was then marked, then prepped and draped in aseptic fashion using chlorhexidine. A 27-gauge 1-1/4-inch needle was then used to anesthetize skin and subcutaneous tissue with 2 mL of 1% lidocaine. This was followed by an introduction of a 25-gauge 2-inch needle, which was advanced towards the proximal head of the right humerus. Needle was advanced until reaching the humeral head, then retracted approximately 1 mm. After negative aspiration for heme, 0.5 mL of Omnipaque injected, demonstrating excellent right shoulder arthrogram. After negative aspiration for heme, 3 mL of solution containing 1 mL 40 mg per mL, 40 mg total triamcinolone along with 2 mL bupivacaine 0.5% injected slowly. Needle retracted [facility], flushed with 1 mL of 1% lidocaine and then removed. Sterile bandage placed over injection site. No new motor deficits present in the right upper extremity following procedure. The patient tolerated the procedure well, carefully escorted to recovery room in stable condition. No apparent complications. After meeting our discharge criteria, the patient discharged home. <ELECTRONICALLY SIGNED> By: Ricky Kraus DO 05/03/21 [id number] Ricky Kraus DO /nt
== END | disposition home or self-care (01) ==
LOC: PAIN 06:50
PROVIDERS: ATTEND Anesthesiology Pain Medicine
DX: M25.512 Pain in left shoulder (principal); M25.511 Pain in right shoulder; M19.011 Primary osteoarthritis, right shoulder; M19.012 Primary osteoarthritis, left shoulder; G89.29 Other chronic pain; Z98.890 Other specified postprocedural states; Z79.899 Other long term (current) drug therapy; Z91.040 Latex allergy status; Z87.891 Personal history of nicotine dependence; Z79.01 Long term (current) use of anticoagulants

== ENCOUNTER → 2021-07-12 | Outpatient (CLI) | payer OTHER ==
[~2021-07-12] VITALS: Ht 180.3 cm; Wt 119.6 kg
[~2021-07-12] MED LIST changes: +CELECOXIB100 MG PO
[2021-07-12 08:39] VITALS: BP 119/72
--- NOTE | 2021-07-12 08:46 | NUR ---
Pain Clinic Assessment: 1. History of Osteoarthritis: Not Applicable History of Rheumatoid Arthritis: Not Applicable 2. Height: 5 ft. 11 in. 180.3 cm. Weight: 263.6 lb. oz. 119.568 kg. Patient's BMI: 36.8 3. Vital Signs: BP: 119/72 Pulse: 105 Resp: 16 Temp: 02 Sat: 97 ECG Mon: 4. Pain Intensity: 8 5. Fall Risk: Dizziness: N Needs help standing or walking: N Fallen in the last 3 months: N Fall risk comments: 6. Patient on Blood Thinner: Warfarin (Coumadin) 7. History of Hypertension: Y 8. Opioid Therapy greater than 6 weeks: Y Opiate Contract Signed: 9. Risk Assessment Tool Provided: LOW-0 10. Functional Assessment Tool: 11. Recreational Drug Use: Never Drug Type: Tobacco Use: Former Smoker Tobacco Type: Amount or Packs/day: How Many Years: Alcohol Use: No Frequency: Quant:
--- NOTE | 2021-07-13 07:55 | HPC ---
[facility] [place] [address] PAIN MANAGEMENT CONSULTATION Name: KARLY FRANCO Room #: REG JACK SarahKi#: [id number] Admission: 07/12/21 Attend Phys: Ricky Kraus DO Discharge: Date of : 67 Report #: [id number] THIS REPORT FOR: cc: John Paul Tang MD,Ricky Kirkland MD, DO ~ cc: John Paul Tang MD DATE OF SERVICE: 07/12/2021 REFERRING PHYSICIAN: Dr. John Paul Tang. CHIEF COMPLAINT: Bilateral shoulder pain, chronic low back pain. HISTORY OF PRESENT ILLNESS: As you know, the patient is a pleasant 56-year-old male reporting 4-month history of progressively worsening bilateral shoulder pain. The patient underwent an intraarticular shoulder injections in April, which provided 100% improvement in overall pain. Unfortunately, the patient participated in activities which exacerbated his bilateral shoulder pain leading to recurrence of symptoms. He is now placing pain at 8/10. The patient states that the activity he was involved in was lifting his luggage and other people's luggage while on a trip to a foreign country. Upon return, he was noticing increasing pain. He tried conservative treatment options, which did not improve symptoms. He made today's appointment to discuss possibility of undergoing intra-articular shoulder injections. He is also complaining of axial back pain that he has had for years. There are no imaging studies or evaluation of the back itself. He wants to discuss that as well today. The patient continues to take oxycodone he receives through his primary care physician for baseline pain. This was started by the primary care team and has been continued. He takes that medication consistently. He reports no problem obtaining the medication at present, though many people have started seeing difficulty with obtaining oxycodone in this area due to distributors no longer providing those medications to local pharmacies. He continues on his Coumadin today, which precludes him from undergoing the requested injections. He wants to discuss the options for treatment, then established a return visit. ALLERGIES: LATEX. CURRENT MEDICATIONS: Metformin, prednisone, oxycodone, carvedilol, multivitamins, omeprazole, aspirin, atorvastatin, and losartan. SOCIAL HISTORY: The patient reports he is a reformed smoker, smoking up to 2 packs a day for nearly 30 years or a total of [id number] history of smoking. Denies IV or illicit drug use. Denies any chronic alcohol use. 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 IMAGING: No new imaging available. [address] [address] PAIN MANAGEMENT CONSULTATION Name: MALINDASTEPHANIEKARLY Room #: REG [facility] James#: [id number] Admission: 07/12/21 Attend Phys: Ricky Kraus DO Discharge: Date of : 67 Report #: [id number] PHYSICAL EXAMINATION: VITAL SIGNS: Blood pressure 119/72, pulse is 105, respiratory rate 16 and unlabored. The patient is 97% on room air. Height 5 feet 11 inches tall, weight 263.6 pounds, BMI calculated 36.8. GENERAL: Well-developed, well-nourished, well-hydrated 56-year-old male appearing stated age. Pain is rated today at 8/10. HEENT: Normocephalic, atraumatic. Pupils equal, round and responsive. He is wearing a mask in compliance with COVID-19 regulations. EXTREMITIES: Show no clubbing, no cyanosis, no edema. MUSCULOSKELETAL: The patient once again has tenderness to palpation over the bilateral shoulders. This is noted both anteriorly and posteriorly. He has signs and symptoms in physical exam of rotator cuff injury bilaterally. Apprehension test is positive bilaterally. He has limited active range of motion and minimized passive range of motion with pain generation. There is some palpatory tenderness noted over the paraspinal musculature of lower lumbar spine. No spinous process tenderness. Seated straight leg raising is negative. Supine straight leg raising is equivocal. Modified [place] is positive for axial back pain. ASSESSMENT: 1. Bilateral shoulder pain. 2. Bilateral shoulder rotator cuff injuries. 3. Bilateral shoulder osteoarthritis. 4. Chronic low back pain. 5. Facet arthropathy of lumbar spine. PLAN: 1. Based on today's physical exam, history the patient has provided, and the description the patient uses in regards to pain, it would appear he re-exacerbated his chronic bilateral shoulder issues. The patient received excellent benefit with the intraarticular shoulder injections, but unfortunately when he became more active with lifting luggage for his family members doing a trip to a foreign country, he exacerbated these symptoms, which is consistent with continue rotator cuff injury. We discussed with the patient the treatment options. He wants to undergo intra-articular shoulder injections and does not wish to look toward surgical options at this juncture. We have made the patient an appointment for next week to undergo that injection. He will have to discontinue his Coumadin for 3 days prior to the intraarticular shoulder injections proposed. He will need to obtain clearance to come off the Coumadin. If he can obtain that clearance, which he has done in the past, we will then have the patient return next week to undergo intra-articular shoulder injections bilaterally. 2. The patient is complaining of chronic axial back pain issues that has been present for years. He states that he just continues to experience symptoms that have progressively worsen. We have recommended the patient to begin with some [facility] [address] [place] [address] PAIN MANAGEMENT CONSULTATION Name: JOANKARLY CORDOVANE Room #: REG [facility].#: [id number] Admission: 07/12/21 Attend Phys: Ricky Kraus DO Discharge: Date of : 67 Report #: [id number] imaging and some exercise programs. We gave him some exercise programs in written form today to follow. He will begin those exercise program and we will have the patient undergo x-ray imaging of the lumbar spine. We will review those findings in the followup visit. 3. No medication changes made at today's visit. We recommend the patient continue current medical therapy as prior prescribed. 4. We will see the patient back in followup visit for bilateral intra-articular shoulder injections under fluoroscopic guidance and address the findings of his x-ray imaging. 5. The patient has voiced concerns about changes in his primary care physician. Dr. Tang started the patient on opioids many years ago and has continued the patient on these medications. He is also treating the patient's other concomitant issues. It does appear that the patient has an appointment with Dr. Tang coming up next week. At that appointment, they are going to be discussing his transition of care to the new primary team taking over Dr. Tang's client load. I am confident that they will provide the patient with the medications being provided by Dr. Tang. We are in the process of reviewing our current medical management for patients and are not accepting any new opioid medication treatment to patients at this time. <ELECTRONICALLY SIGNED> By: Ricky Kraus DO 07/13/21 [id number] Ricky Kraus DO /nt
== END | disposition home or self-care (01) ==
LOC: PAIN 06:58
PROVIDERS: ATTEND Anesthesiology Pain Medicine
DX: M25.511 Pain in right shoulder (principal); M25.512 Pain in left shoulder; M19.011 Primary osteoarthritis, right shoulder; M19.012 Primary osteoarthritis, left shoulder; S46.092A Other injury of muscle(s) and tendon(s) of the rotator cuff of left shoulder, initial encounter; S46.091A Other injury of muscle(s) and tendon(s) of the rotator cuff of right shoulder, initial encounter; M54.59 Other low back pain; G89.29 Other chronic pain; M47.896 Other spondylosis, lumbar region; Z91.040 Latex allergy status; Z87.891 Personal history of nicotine dependence; Z79.01 Long term (current) use of anticoagulants; X58.XXXA Exposure to other specified factors, initial encounter; Y93.89 Activity, other specified; Y92.89 Other specified places as the place of occurrence of the external cause; Y99.8 Other external cause status